=== PATIENT | female | born 1985 ===

== ENCOUNTER 2018-03-31 15:25 | Inpatient (IN) | payer OTHER ==
[~2018-03-31] VITALS: Ht 162.6 cm; Wt 110.2 kg
[2018-03-31] MEDS ORDERED: PRENATAL 19 TA1 EAC1 PO (21:41)
[2018-04-11] MEDS ORDERED: NIFEDIPINE ER30 MG PO (10:17)
[2018-04-11] MEDS ORDERED: HYDROXYZINE PAM25 MG PO (10:17)
== END 2018-04-11 11:52 | DRG 780 ==
LOC: LDR 15:25 → OB/GYN 15:25
PROC: BY4FZZZ Ultrasonography of Third Trimester, Single Fetus (ICD-10-PCS; principal; 2018-04-01)
PROC: 4A1HXCZ Monitoring of Products of Conception, Cardiac Rate, External Approach (ICD-10-PCS; 2018-04-01)
DX: O47.03 False labor before 37 completed weeks of gestation, third trimester (principal)
CPT/HCPCS: 240

== ENCOUNTER 2018-04-13 21:30 | Outpatient (CLI) | payer OTHER ==
[~2018-04-13 21:30] MED LIST: HYDROXYZINE PAM25 MG PO; NIFEDIPINE ER30 MG PO; PRENATAL 19 TA1 EAC1 PO
== END 2018-04-14 08:46 | disposition home or self-care (01) ==
LOC: OBS/DEL 21:30
DX: O20.0 Threatened abortion (principal); O26.893 Other specified pregnancy related conditions, third trimester; Z34.03 Encounter for supervision of normal first pregnancy, third trimester; O24.410 Gestational diabetes mellitus in pregnancy, diet controlled; Z04.3 Encounter for examination and observation following other accident; W18.39XA Other fall on same level, initial encounter; Y93.89 Activity, other specified; Y92.89 Other specified places as the place of occurrence of the external cause; Y99.8 Other external cause status

== ENCOUNTER 2018-05-09 09:38 | Inpatient (IN) | payer OTHER ==
[~2018-05-09] VITALS: Ht 162.6 cm; Wt 113.4 kg
== END 2018-05-11 13:56 | DRG 775 ==
LOC: LDR 09:38 → OB/GYN 09:38
PROC: 10E0XZZ Delivery of Products of Conception, External Approach (ICD-10-PCS; principal; 2018-05-09)
PROC: 0DQR0ZZ Repair Anal Sphincter, Open Approach (ICD-10-PCS; 2018-05-09)
PROC: 10907ZC Drainage of Amniotic Fluid, Therapeutic from Products of Conception, Via Natural or Artificial Opening (ICD-10-PCS; 2018-05-09)
PROC: 3E033VJ Introduction of Other Hormone into Peripheral Vein, Percutaneous Approach (ICD-10-PCS; 2018-05-09)
PROC: 4A033R1 Measurement of Arterial Saturation, Peripheral, Percutaneous Approach (ICD-10-PCS; 2018-05-09)
PROC: 4A1HXCZ Monitoring of Products of Conception, Cardiac Rate, External Approach (ICD-10-PCS; 2018-05-09)
DX: O70.21 Third degree perineal laceration during delivery, IIIa (principal); O24.420 Gestational diabetes mellitus in childbirth, diet controlled; Z3A.38 38 weeks gestation of pregnancy; Z37.0 Single live birth